=== PATIENT | female | born 1995 | race Caucasian/White ===

== ENCOUNTER 2020-05-18 02:28 | Emergency (ER) | payer BC ==
[2020-05-18] MEDS ORDERED: CLEOCIN HCL300 MG PO (03:31)
[2020-05-18] MEDS ORDERED: IBUPROFEN800 MG PO (03:31)
== END 2020-05-18 03:46 | disposition home or self-care (01) ==
LOC: ER1 02:28
DX: K02.9 Dental caries, unspecified (principal)
CPT/HCPCS: 96372; 99282; J1885